=== PATIENT | male | born 1975 | race African-American/Black ===

== ENCOUNTER 2018-02-11 20:05 | Emergency (ER) | payer OTHER ==
[2018-02-11 20:25] VITALS: BP 122/77; PULSE 96; TEMP 98.4; BMI 46.0
--- NOTE | 2018-02-11 21:34 | PDOC ---
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 denies chest pain, nausea, vomiting, Past History - Past Medical History Allergies/Adverse Reactions: Allergies Allergy/AdvReac Type Severity Reaction Status Date / Time No Known Allergies Allergy Verified 02/11/18 20:22 Home Medications: Ambulatory Orders Ibuprofen 600 mg PO QID PRN #20 tablet 02/11/18 Asthma: Yes COPD: No - Suicide/Smoking/Psychosocial Hx Smoking History: Never smoked Have you smoked in the past 12 months: Yes Number of Cigarettes Smoked Daily: 2 Information on smoking cessation initiated: No Hx Alcohol Use: No Drug/Substance Use Hx: No Substance Use Type: None Review of Systems - Review of Systems Able to Perform ROS?: Yes Is the patient limited Armenian proficient: No Cardiac (ROS): Yes: Other (rib pain) *Physical Exam - Vital Signs Last Vital Signs Temp Pulse Resp BP Pulse Ox 98.4 F 96 H 20 122/77 99 02/11/18 20:22 02/11/18 20:22 02/11/18 20:22 02/11/18 20:22 02/11/18 20:22 - Physical Exam General Appearance: Yes: Appropriately Dressed Respiratory/Chest: positive: Chest Tender (left side chest pain reproducible ), Lungs Clear, Normal Breath Sounds, Other (tenderness between ribs 8->10~ ) Gastrointestinal/Abdominal: positive: Normal Bowel Sounds, Soft Integumentary: positive: Normal Color, Dry, Warm Neurologic: positive: Fully Oriented, Alert, Normal Mood/Affect Medical Decision Making - Medical Decision Making 02/11/18 22:04 A: rib pain P: xray: negative *DC/Admit/Observation/Transfer Diagnosis at time of Disposition: Rib pain on left side, Costochondritis - Discharge Dispostion Disposition: HOME - Prescriptions Prescriptions: Ibuprofen 600 mg PO QID PRN #20 tablet PRN Reason: Moderate Pain - Referrals - Patient Instructions Printed Discharge Instructions: Costochondritis Additional Instructions: apply ice/heat to the area. take ibuprofen every 6 hours as needed for pain follow up with your doctor as soon as possible. - Post Discharge Activity Forms/Work/School Notes: Back to Work
[2018-02-11] MEDS ORDERED: KETOROLAC TROMETHAMINE 60 MG/2 ML VIAL IM ONE (22:31)
[2018-02-11] MEDS ORDERED: KETOROLAC TROMETHAMINE 60 MG/2 ML VIAL ONE (22:36)
== END 2018-02-11 23:51 | disposition home or self-care (01) ==
LOC: JER 20:05
PROC: 3E0233Z Introduction of Anti-inflammatory into Muscle, Percutaneous Approach (ICD-10-PCS; principal; 2018-02-11)
DX: M94.0 Chondrocostal junction syndrome [Tietze] (principal); X50.0XXA Overexertion from strenuous movement or load, initial encounter; X50.9XXA Other and unspecified overexertion or strenuous movements or postures, initial encounter; Y93.89 Activity, other specified; Y92.89 Other specified places as the place of occurrence of the external cause; Y99.8 Other external cause status
CPT/HCPCS: 71046-TC-FY; 71101-TC-FY; 99283-25